=== PATIENT | female | born 1985 | race African-American/Black ===

== ENCOUNTER 2016-11-04 22:05 | Inpatient (IN) | payer OTHER ==
[2016-11-04 23:10] VITALS: BMI 24.8
[2016-11-04] MEDS ORDERED: TUBERCULIN PPD 5 TU/0.1ML SYRINGE (IN PATIENT USE ONLY) ID ONE (23:10)
[2016-11-04 23:25] LABS: BASOPHIL 0.8 % (0-2.0); EOSINOPHIL 0.6 % (0-4.5); MCH 30.3 pg (25.7-33.7); MCHC 34.9 g/dl (32.0-36.0); MEAN CELL VOLUME 86.7 fl (80-96); MEAN PLT VOLUME 9.5 fl (7.5-11.1); NEUTROPHILS 63.4 % (42.8-82.8); PLATELET COUNT 257 K/MM3 (134-434); RDW 13.4 % (11.6-15.6)
--- NOTE | 2016-11-04 23:30 | HP ---
Past Medical History - Primary Care Physician PCP:: Stephen Ray - Admission Chief Complaint: 37.1 weeks, rom History of Present Illness: 31 yo f g 6 [id number] wdc by sono 11/24/16 37.1 weeks c/o ROM since 930 pm, clear, no pain, no fever , no vaginal bleeding History Source: Patient Limitations to Obtaining History: No Limitations - Past Medical History ...: 6 ...Para: 2 ...Term: 1 ...: 1 ...Spon : 0 ...Induced : 3 ...Multiple Gestation: 0 ...LMP: 02/18/16 ... Weeks Gestation by Dates: 37.1 ...EDC by Dates: 11/24/16 ...EDC by Sono: 11/24/16 Heme/Onc: Yes: Sickle Cell Trait - Past Surgical History Hx Myomectomy: No Hx Transabdominal Cerclage: No Additional Surgical History: ovarian cystectomy, 2004. hemorrhoidectomy - Smoking History Smoking history: Former smoker Have you smoked in the past 12 months: No Aproximately how many cigarettes per day: 5 If you are a former smoker, when did you quit?: 10/2014 - Alcohol/Substance Use Hx Alcohol Use: No - Social History History of Recent Travel: No Home Medications - Allergies Allergies/Adverse Reactions: Allergies Allergy/AdvReac Type Severity Reaction Status Date / Time No Known Allergies Allergy Verified 09/29/16 11:56 - Home Medications Home Medications: Ambulatory Orders Vitamins (Sjr) - 1 tab PO DAILY 05/05/15 Review of Systems - Review of Systems Constitutional: reports: No Symptoms Eyes: reports: No Symptoms HENT: reports: No Symptoms Neck: reports: No Symptoms Cardiovascular: reports: No Symptoms Respiratory: reports: No Symptoms Gastrointestinal: reports: No Symptoms Genitourinary: reports: No Symptoms Musculoskeletal: reports: No Symptoms Integumentary: reports: No Symptoms Neurological: reports: No Symptoms Endocrine: reports: No Symptoms Hematology/Lymphatic: reports: No Symptoms Psychiatric: reports: No Symptoms Physical Exam - Maternity Vital Signs: Vital Signs Temperature 98.3 F 11/04/16 22:58 Pulse Rate 63 11/04/16 22:58 Respiratory Rate 20 11/04/16 22:58 Blood Pressure 118/55 11/04/16 22:58 O2 Sat by Pulse Oximetry (%) Constitutional: Yes: Well Nourished, No Distress, Calm Eyes: Yes: WNL, Conjunctiva Clear, EOM Intact HENT: Yes: WNL, Atraumatic, Normocephalic Neck: Yes: WNL, Supple, Trachea Midline Cardiovascular: Yes: WNL, Regular Rate and Rhythm Breast(s): Yes: WNL - Abdominal Exam/OB Fundal Height: 36 Number of Fetuses: Single Presentation: Vertex Contractions: Yes Regularity: Irregular Intensity: Unaware Monitor Mode: External Heart Rate Location: [facility] Category: II Accelerations: Non-Uniform Decelerations: Variable - Vaginal Exam/OB Vaginal Bleediing: No Speculum Exam: No Dilatation (cm): closed Effacement (%): 0 Amniotic Membrane Status: Ruptured Nitrazine Test: Positive Amniotic Fluid: Yes: Clear Presentation: Vertex/Position Station: -3 - Physical Exam Musculoskeletal: Yes: WNL Edema: No Edema: LLE: Trace, RLE: Trace ...Motor Strength: WNL Psychiatric: Yes: WNL Hemorrhage Risk Assessment - Risk Factors Medium Risk Factors: Yes: None Risk Score: 1 Risk Level: Medium Risk Problem List - Problems (1) with 37 or more completed weeks gestation Code(s): [id number] - (2) membrane rupture Code(s): FBJ6843 - (3) Non-reassuring electronic monitoring tracing Code(s): O76 - ABNLT IN HEART RATE AND RHYTHM COMP LABOR AND DELIVERY Assessment/Plan admit heart monitoring, i, lt side, o2 , if decel cont needs c/s rba discussed
[2016-11-04 23:33] LABS: INR 0.96 (0.82-1.09); PROTHROMBIN TIME (PATIENT) 10.5 SEC (9.98-11.88)
[2016-11-04 23:35] LABS: ACTIVATED PTT 27.6 SECONDS (26.9-34.4)
[2016-11-04] MEDS ORDERED: CITRIC ACID/SODIUM CITRATE 30 ML UNIT-DOSE CUP PO ONE (23:44)
[2016-11-04] MEDS ORDERED: ELECTROLYTE-148 SOLN 1,000 ML IV SCH (23:45)
[2016-11-05] MEDS ORDERED: IBUPROFEN 800 MG/8 ML IJ IVPB PRN (00:10)
[2016-11-05] MEDS ORDERED: oxyCODONE HCL 5 MG TABLET PO PRN (00:10)
[2016-11-05] MEDS ORDERED: diphenhydrAMINE HCL 25 MG CAPSULE (FP) PO PRN (00:10)
[2016-11-05] MEDS ORDERED: METHYLERGONOVINE MALEATE 0.2 MG/1 ML AMP IM PRN (00:10)
[2016-11-05] MEDS ORDERED: BENZOCAINE 28 GM HEMORRHOIDAL OINTMENT PR PRN (00:10)
[2016-11-05] MEDS ORDERED: WITCH HAZEL 50% (TUCKS) 40 PAD/JAR PAD TP PRN (00:10)
[2016-11-05] MEDS ORDERED: BENZOCAINE 20% 57 GM BOTTLE TP PRN (00:10)
[2016-11-05 00:11] LABS: CALCIUM 8.9 mg/dL (8.5-10.1)
[2016-11-05 00:12] LABS: COCKROFT - GAULT 220.592; CREATININE 0.4 mg/dL (0.55-1.02)
[2016-11-05] MEDS ORDERED: DEXTROSE 5%-LACTATED RINGERS 1,000 ML IV SCH (00:15)
[2016-11-05] MEDS ORDERED: OXYTOCIN 20 UNITS in 0.9% NS 1,000 ML IV SCH (00:15)
[2016-11-05 00:20] LABS: URINE APPEARANCE CLEAR; URINE BILIRUBIN NEGATIVE (NEGATIVE); URINE BLOOD NEGATIVE (NEGATIVE); URINE COLOR STRAW; URINE GLUCOSE (UA) NEGATIVE (NEGATIVE); URINE KETONE NEGATIVE (NEGATIVE); URINE LEUK ESTERASE NEGATIVE (NEGATIVE); URINE NITRITE NEGATIVE (NEGATIVE); URINE PROTEIN NEGATIVE (NEGATIVE); URINE UROBILINOGEN NEGATIVE E.U./dl (0.2-1.0)
[2016-11-05 00:30] LABS: URINE MARIJUANA THC POSITIVE ng/ml (CUTOFF=50)
[2016-11-05 00:49] LABS: ARTERIAL BLD GAS O2 SATURATION 27.6 % (90-98.9); ARTERIAL BLOOD GAS BASE EXCESS -1.7 meq/l (-2-2); ARTERIAL BLOOD GAS HCO3 24.9 meq/L (22-26)
[2016-11-05 00:52] LABS: ARTERIAL BLOOD GAS PO2 17.5 mmHg (80-100)
[2016-11-05 00:54] LABS: VENOUS BLOOD GAS HCO3 23.2 meq/L (19-25); VENOUS PH 7.36 (7.32-7.42)
[2016-11-05] MEDS ORDERED: ONDANSETRON 4 MG/2 ML VIAL IVPB PRN (01:07)
[2016-11-05] MEDS ORDERED: CEFAZOLIN 1 GM/D5W 50 ML IVPB SCH (02:00)
--- NOTE | 2016-11-05 09:05 | OP ---
DATE OF OPERATION: 11/05/2016 PREOPERATIVE DIAGNOSIS: , 37 weeks, premature rupture of membranes, labor, breech, non-reassuring heart rate. POSTOPERATIVE DIAGNOSIS: , 37 weeks, premature rupture of membranes, labor, breech, non-reassuring heart rate. PROCEDURE: Primary low segment transverse section. SURGEON: Mahendra Oliver MD TRAFFIC REPORTER: Olga Herrera MD ANESTHESIA: Spinal. ANESTHESIOLOGIST: Pamela Chaudhry DO ESTIMATED BLOOD LOSS: 100 mL. OPERATION: The patient was taken to the operating room. Under adequate spinal anesthesia, abdomen and perineum were prepped and draped. Pfannenstiel abdominal skin incision was made over the previous incision. Abdominal wall was cut layer by layer, and the peritoneum was exposed and incised. Upon entering the abdominal cavity, lower uterine segment was identified, and uterovesical fold of peritoneum was established, bladder was pushed down. Then, with the lower blade of the Tushar retractor in the pelvis, a low transverse uterine incision was made. Incision extended laterally. Amniotic sac was entered. Minimal fluid was seen. Baby was in yoanna breech, right sacral anterior position. Delivered via breech without any difficulty. Placenta was delivered manually. Uterine cavity was cleaned of all remaining tissue. Then, uterine incision was closed in 2 layers, 1st layer with 0 Biosyn continuous suture, the 2nd layer with 0 Biosyn imbricating the 1st layer. Bladder flap was closed with 0 Biosyn continuous suture. Both tubes and ovaries were checked, were normal. No active bleeding was seen. All the lap pad, sponge, and instrument counts were correct. Then, the peritoneum was closed with 0 Biosyn continuous suture, muscles were brought together with interrupted suture of 0 Biosyn, fascia was closed with 0 Biosyn continuous suture, subcutaneous fat with interrupted suture of 0 Biosyn, and the skin was closed with 3-0 Vicryl subcuticular continuous suture. The patient tolerated the procedure well, left the OR in good condition. MAHENDRA OLIVER M.D. [id number]
[2016-11-05] MEDS: CEFAZOLIN 1 GM/D5W 50 ML IVPB SCH ×3 (10:00→17:14)
[2016-11-05] MEDS: PRENATAL VITAMINS W/ FOLIC ACID TABLET (FP) PO SCH (10:11)
[2016-11-05] MEDS: ENOXAPARIN NA (PORCINE) 40 MG/0.4 ML DISP.SYRIN SQ SCH (10:18)
[2016-11-05] MEDS: SIMETHICONE 80 MG TAB.CHEW (FP) PO PRN (21:57)
[2016-11-05] MEDS: ACETAMINOPHEN 325 MG TABLET (FP) PO PRN (21:59)
[2016-11-05] MEDS: IBUPROFEN 600 MG TABLET (FP) PO PRN (22:01)
[2016-11-06] MEDS ORDERED: BISACODYL 10 MG SUPP.RECT RC PRN (00:10)
[2016-11-06] MEDS: IBUPROFEN 600 MG TABLET (FP) PO PRN ×2 (04:45→21:30)
[2016-11-06] MEDS: ACETAMINOPHEN 325 MG TABLET (FP) PO PRN (04:47)
[2016-11-06] MEDS: oxyCODONE HCL 5 MG TABLET PO PRN ×3 (08:29→18:08)
[2016-11-06 08:52] LABS: BASOPHIL 0.8 % (0-2.0); EOSINOPHIL 1.1 % (0-4.5); MCH 29.8 pg (25.7-33.7); MCHC 34.7 g/dl (32.0-36.0); MEAN CELL VOLUME 85.9 fl (80-96); MEAN PLT VOLUME 8.5 fl (7.5-11.1); NEUTROPHILS 66.7 % (42.8-82.8); PLATELET COUNT 223 K/MM3 (134-434); RDW 13.1 % (11.6-15.6)
[2016-11-06] MEDS: PRENATAL VITAMINS W/ FOLIC ACID TABLET (FP) PO SCH (11:00)
[2016-11-06] MEDS: ENOXAPARIN NA (PORCINE) 40 MG/0.4 ML DISP.SYRIN SQ SCH (11:01)
--- NOTE | 2016-11-06 11:35 | PN ---
Progress Note, Physician Chief Complaint: Pt. ambulating and voiding, no BARRETO, pain controlled. - Current Medication List Current Medications: Active Medications Acetaminophen (Tylenol -) 650 mg PO Q6H PRN PRN Reason: FEVER OR PAIN Last Admin: 11/06/16 04:47 Dose: 650 mg Benzocaine (Americaine Ointment -) 1 applic [place] PRN PRN PRN Reason: PAIN Benzocaine (Americaine 20% [place] -) 1 spray TP PRN PRN PRN Reason: PAIN Bisacodyl (Dulcolax Suppository -) 10 mg RC PRN PRN PRN Reason: CONSTIPATION Diphenhydramine HCl (Benadryl -) 25 mg PO Q8H PRN PRN Reason: FOR ITCHING Diphenhydramine HCl (Benadryl Injection -) 25 mg IVPUSH Q4H PRN PRN Reason: Pruritis Enoxaparin Sodium (Lovenox -) 40 mg SQ DAILY [facility] Last Admin: 11/06/16 11:01 Dose: Not Given Ibuprofen (Motrin -) 600 mg PO Q4H PRN PRN Reason: PAIN Last Admin: 11/06/16 04:45 Dose: 600 mg Methylergonovine Maleate (Methergine Injection -) 0.2 mg IM Q4H PRN PRN Reason: EXCESSIVE BLEEDING Oxycodone HCl (Roxicodone -) 5 mg PO Q4H PRN PRN Reason: PAIN LEVEL 1-5 Last Admin: 11/06/16 08:29 Dose: 5 mg Oxycodone HCl (Roxicodone -) 10 mg PO Q4H PRN PRN Reason: PAIN LEVEL 6-10 Multivit/Folic Acid/Iron ( Vitamins (Sjr) -) 1 tab PO DAILY [facility] Last Admin: 11/06/16 11:00 Dose: 1 tab Senna/Docusate Sodium (Pericolace -) 2 tablet PO HS PRN PRN Reason: CONSTIPATION Simethicone (Mylicon -) 80 mg PO Q4H PRN PRN Reason: GAS Last Admin: 11/05/16 21:57 Dose: 80 mg Witch Tanisha/Glycerin (Tucks Pads -) 1 pad TP PRN PRN PRN Reason: PAIN - Objective Vital Signs: Vital Signs Temperature 98.3 F 11/05/16 22:00 Pulse Rate 62 11/05/16 22:00 Respiratory Rate 18 11/06/16 01:00 Blood Pressure 120/66 11/05/16 22:00 O2 Sat by Pulse Oximetry (%) 100 11/05/16 02:00 Constitutional: Yes: Well Nourished, No Distress, Calm Musculoskeletal: Yes: WNL Neurological: Yes: WNL, Alert, Oriented ...Motor Strength: WNL Labs: CBC, BMP 11/06/16 07:45 11/04/16 23:00 INR, PTT INR 0.96 (0.82-1.09) 11/04/16 23:00 Assessment/Plan POD#1 s/p primary under spinal with duramorph. Doing well. D/C from anesthesia care.
[2016-11-06] MEDS: SIMETHICONE 80 MG TAB.CHEW (FP) PO PRN (21:29)
--- NOTE | 2016-11-06 23:25 | PN ---
Progress Note (short form) - Note Progress Note: pod 1 doing well, no c/o voids ok CBC, BMP 11/06/16 07:45 11/04/16 23:00 Last Vital Signs Temp Pulse Resp BP Pulse Ox 97.8 F 60 18 116/70 100 11/06/16 20:58 11/06/16 20:58 11/06/16 20:58 11/06/16 20:58 11/05/16 02:00 abdomen soft, non tender , no distension., no cva incision dry, clean no calf tenderness plan ambulate , advance diet Problem List - Problems (1) with 37 or more completed weeks gestation Code(s): [id number] - (2) membrane rupture Code(s): LLV4998 - (3) Non-reassuring electronic monitoring tracing Code(s): O76 - ABNLT IN HEART RATE AND RHYTHM COMP LABOR AND DELIVERY
[2016-11-07] MEDS: oxyCODONE HCL 5 MG TABLET PO PRN ×3 (00:55→17:49)
[2016-11-07] MEDS: SIMETHICONE 80 MG TAB.CHEW (FP) PO PRN (06:20)
[2016-11-07] MEDS: IBUPROFEN 600 MG TABLET (FP) PO PRN ×2 (06:20→21:11)
[2016-11-07] MEDS: ACETAMINOPHEN 325 MG TABLET (FP) PO PRN ×2 (06:21→21:12)
[2016-11-07] MEDS: PRENATAL VITAMINS W/ FOLIC ACID TABLET (FP) PO SCH (09:26)
[2016-11-07] MEDS: ENOXAPARIN NA (PORCINE) 40 MG/0.4 ML DISP.SYRIN SQ SCH (09:26)
--- NOTE | 2016-11-07 10:57 | DS ---
Physical Exam-GANG BOSS Vital Signs: Vital Signs Temperature 97.7 F 11/07/16 08:57 Pulse Rate 59 L 11/07/16 08:57 Respiratory Rate 20 11/07/16 08:57 Blood Pressure 114/76 11/07/16 08:57 O2 Sat by Pulse Oximetry (%) 100 11/05/16 02:00 Labs: CBC, BMP 11/06/16 07:45 11/04/16 23:00 Delivery - Delivery Type of Anesthesia: Spinal Episiotomy/Laceration: None EBL (cc): 500 Delivery, Single - Stages of Labor Date of Delivery: 11/05/16 Time of Delivery: 00:22 Time Placenta Delivered: 00:25 - Condition of Farmer And Grazier/Sewing Machine Operator Present: Yes Name: Torsten Arellano Gender: Male Weight: 6 lb 6 oz Total Hours ROM (Hrs/Mins): 3H - 1 Minute Total Score: 9 5 Minutes Total Score: 9 - [place] Feeding Plan Initial Plan: Elected not to breastfeed exclusively throughout hospitalization Discharge Summary Reason For Visit: LABOR ADMIT Current Active Problems membrane rupture (Acute) Non-reassuring electronic monitoring tracing (Acute) with 37 or more completed weeks gestation (Acute) - Home Medications Comprehensive Discharge Medication List: Ambulatory Orders Vitamins (Sjr) - 1 tab PO DAILY 05/05/15
--- NOTE | 2016-11-07 17:12 | PN ---
Progress Note (short form) - Note Progress Note: pod 2 doing well, ambulating , tolorating diet CBC, BMP 11/06/16 07:45 11/04/16 23:00 Last Vital Signs Temp Pulse Resp BP Pulse Ox 97.7 F 59 L 20 114/76 100 11/07/16 08:57 11/07/16 08:57 11/07/16 08:57 11/07/16 08:57 11/05/16 02:00 abdomen soft, no distension, no cva incision dry, clean no calf tenderness plan ambulate, cbc in am Problem List - Problems (1) with 37 or more completed weeks gestation Code(s): [id number] - (2) membrane rupture Code(s): SHE0754 - (3) Non-reassuring electronic monitoring tracing Code(s): O76 - ABNLT IN HEART RATE AND RHYTHM COMP LABOR AND DELIVERY
[2016-11-07] MEDS ORDERED: oxyCODONE HCL 5 MG TABLET PO PRN (21:59)
[2016-11-07] MEDS ORDERED: SENNOSIDES/DOCUSATE COMBO (SENNA PLUS) TABLET (UD) PO PRN (22:00)
[2016-11-08] MEDS: IBUPROFEN 600 MG TABLET (FP) PO PRN (02:57)
[2016-11-08] MEDS: ACETAMINOPHEN 325 MG TABLET (FP) PO PRN (02:58)
[2016-11-08] MEDS: SIMETHICONE 80 MG TAB.CHEW (FP) PO PRN (03:35)
[2016-11-08 08:03] VITALS: BP 118/73; PULSE 57; TEMP 98.3
[2016-11-08 08:15] LABS: BASOPHIL 0.4 % (0-2.0); MCH 29.6 pg (25.7-33.7); MCHC 33.8 g/dl (32.0-36.0); MEAN CELL VOLUME 87.4 fl (80-96); MEAN PLT VOLUME 8.6 fl (7.5-11.1); NEUTROPHILS 60.6 % (42.8-82.8); PLATELET COUNT 225 K/MM3 (134-434); RDW 13.1 % (11.6-15.6); WHITE BLOOD COUNT 8.1 K/mm3 (4.0-10.0)
--- NOTE | 2016-11-08 08:51 | DS ---
Physical Exam-PHOTOGRAPHIC LABORATORY TECHNICIAN Vital Signs: Vital Signs Temperature 98.3 F 11/08/16 07:45 Pulse Rate 57 L 11/08/16 07:45 Respiratory Rate 20 11/08/16 07:45 Blood Pressure 118/73 11/08/16 07:45 O2 Sat by Pulse Oximetry (%) 100 11/05/16 02:00 Constitutional: Yes: Well Nourished Eyes: Yes: WNL, Conjunctiva Clear, EOM Intact HENT: Yes: WNL, Atraumatic, Normocephalic Neck: Yes: WNL, Supple, Trachea Midline Cardiovascular: Yes: WNL, Regular Rate and Rhythm Respiratory: Yes: WNL, Regular, CTA Bilaterally Gastrointestinal: Yes: WNL ...Rectal Exam: Yes: WNL Renal/: Yes: WNL ....Post : Yes: Uterus firm, Uterus non-tender, Slight lochia rubra Breast(s): Yes: WNL Musculoskeletal: Yes: WNL Extremities: Yes: WNL Edema: No Integumentary: Yes: WNL Wound/Incision: Yes: Clean/Dry, Well Approximated, Sutures Intact Neurological: Yes: WNL, Alert, Oriented ...Motor Strength: WNL Psychiatric: Yes: WNL, Alert, Oriented Labs: CBC, BMP 11/08/16 06:00 11/04/16 23:00 Delivery - Delivery Section: Primary, Low Flap Transverse (breech ,no complication) Type of Anesthesia: Spinal Episiotomy/Laceration: None EBL (cc): 500 Delivery, Single - Stages of Labor Date of Delivery: 11/05/16 Time of Delivery: 00:22 Time Placenta Delivered: 00:25 Placenta: Yes: Expressed - Condition of Plant Electrical Engineer/Fish Straightener Present: Yes Name: Torsten Arellano Infant Gender: Male Weight: 6 lb 6 oz Total Hours ROM (Hrs/Mins): 3H - 1 Minute Total Score: 9 5 Minutes Total Score: 9 - [place] Feeding Plan Initial Plan: Elected not to breastfeed exclusively throughout hospitalization Discharge Summary Reason For Visit: LABOR ADMIT Current Active Problems membrane rupture (Acute) Non-reassuring electronic monitoring tracing (Acute) with 37 or more completed weeks gestation (Acute) Procedures: Principal: primary LST c/s Condition: Stable - Instructions Referrals: Stephen Ray MD [Staff Physician] - - Home Medications Comprehensive Discharge Medication List: Ambulatory Orders Vitamins (Sjr) - 1 tab PO DAILY 05/05/15
[2016-11-08] MEDS: PRENATAL VITAMINS W/ FOLIC ACID TABLET (FP) PO SCH (09:36)
[2016-11-08] MEDS: ENOXAPARIN NA (PORCINE) 40 MG/0.4 ML DISP.SYRIN SQ SCH (09:41)
--- NOTE | 2016-11-10 14:25 | PATH ---
Surgical Pathology Report Patient Name: SARAH SCHMITT Med. Rec. #: [id number] /Age/Gender: 1985 (Age: 31) / F Account: [id number] Location: [facility] OBS/FORM SETTER Taken: 11/05/2016 Received: 11/05/2016 Reported: 11/10/2016 Physicians: Stephen Ray M.D. Specimen(s) Received PLACENTA Clinical History , IUP 37.1 weeks, PROM, non-reassuring FHR, breech Primary c/section Final Diagnosis PLACENTA, DELIVERY: FOCALLY DISRUPTED, SMALL (<400GM), THIRD TRIMESTER PLACENTA WITH MILD TO MODERATE PREVILLOUS, PERIVILLOUS, AND PRECHORIONIC FIBRIN DEPOSITION, FOCAL CALCIFICATIONS, THREE VESSEL UMBILICAL CORD, AND PLACENTAL MEMBRANES WITH FOCAL AMNION HYPERPLASIA. Electronically Signed Milan Childers M.D. Gross Description The specimen is received fresh, labeled "placenta" and is a 348 gram, 19.0 x 16.5 x 1.6 cm placenta with attached membranes and umbilical cord. The attached membranes are mishra, translucent with focal opacities and insert marginally. The umbilical cord measures 13 cm in length and averages 1.2 cm in diameter. The cord inserts eccentrically, 4 cm to the nearest margin. No true knots or strictures are identified. Cut surface of the umbilical cord reveals 3 vessels. The surface is banda-blue with fibrin deposition and appropriate caliber vessels. The maternal surface is red-brown with focal defects. Sectioning reveals red-brown, spongy parenchyma. No focal lesions are identified. Front Desk Manager sections are submitted in three cassettes as follows: 1- membrane rolls and umbilical cord; 2-3- full thickness sections of placenta. /11/09/2016 [facility]11/09/2016
== END 2016-11-08 12:00 | disposition home or self-care (01) | DRG 540 ==
LOC: JLDR 22:05 → J3W 11-05 02:30
PROVIDERS: ADMIT Obstetrics & Gynecology; ATTEND Obstetrics & Gynecology
PROC: 10D00Z1 Extraction of Products of Conception, Low, Open Approach (ICD-10-PCS; principal; 2016-11-05)
DX: O76 Abnormality in fetal heart rate and rhythm complicating labor and delivery (principal); O42.92 Full-term premature rupture of membranes, unspecified as to length of time between rupture and onset of labor; Z3A.37 37 weeks gestation of pregnancy; Z37.0 Single live birth
CPT/HCPCS: 36415; 36600; 80048; 80307; 81003; 82803; 85025; 85610; 85730; 86593; 86850; 86900; 86901; 88307-TC

== ENCOUNTER 2018-10-09 23:05 | Inpatient (IN) | payer OTHER ==
[2018-10-09] MEDS ORDERED: DEXTROSE 5%-LACTATED RINGERS 500 ML IV ONE (23:30)
[2018-10-10] MEDS ORDERED: DEXTROSE 5%-LACTATED RINGERS 500 ML IV ONE (00:30)
[2018-10-10 02:24] LABS: BASO % 0.3 % (0-2.0); EOS % 1.4 % (0-4.5); HEMATOCRIT 30.8 % (32.4-45.2); LYMPH % 32.5 % (8-40); MCH 31.3 pg (25.7-33.7); MCHC 35.7 g/dl (32.0-36.0); MEAN CELL VOLUME 87.8 fl (80-96); NEUT % 60.8 % (42.8-82.8); PLATELET COUNT 223 K/MM3 (134-434); RDW 13.7 % (11.6-15.6); WHITE BLOOD COUNT 12.4 K/mm3 (4.0-10.0)
[2018-10-10] MEDS ORDERED: CITRIC ACID/SODIUM CITRATE 30 ML UNIT-DOSE CUP PO ONE (02:30)
[2018-10-10] MEDS ORDERED: ELECTROLYTE-148 SOLN 500 ML IV ONE (02:30)
[2018-10-10 02:35] LABS: INR 0.93 (0.83-1.09)
[2018-10-10 02:38] LABS: ACTIVATED PTT 28.6 SECONDS (25.2-36.5)
[2018-10-10 02:47] LABS: ANION GAP 6 MMOL/L (8-16); BLOOD UREA NITROGEN 9 mg/dL (7-18); CALCIUM 8.3 mg/dL (8.5-10.1); CHLORIDE 107 mmol/L (98-107); CO2 25 mmol/L (21-32); CREATININE 0.5 mg/dL (0.55-1.3); GLUCOSE,RANDOM 99 mg/dL (74-106); POTASSIUM 3.5 mmol/L (3.5-5.1); SODIUM 138 mmol/L (136-145)
[2018-10-10] MEDS ORDERED: ELECTROLYTE-148 SOLN 1,000 ML IV SCH ×2 (03:00→04:30)
[2018-10-10 03:13] VITALS: BMI 23.5
[2018-10-10] MEDS ORDERED: morphine SULFATE/Preservative Free 0.5 MG/ML (1cc Syringe) EP ONE (04:16)
[2018-10-10] MEDS ORDERED: ONDANSETRON 4 MG/2 ML VIAL IVPUSH PRN (04:16)
[2018-10-10] MEDS ORDERED: ceFAZolin SODIUM 1 GM VIAL ONE (04:28)
--- NOTE | 2018-10-10 04:28 | HP ---
Past Medical History - Admission History of Present Illness: 33 yo @ 37 0/7 wks by first trimester ultrasound, EDC 10/31/2018 complicated by: 1. Prior CD (breech in labor) 10/2016 - desires repeat Declines tubal ligation 2. Patient with sickle cell trait Partner declines Hg Electrophoresis 3. delivery with second baby @ 34 wks Refused 17 [place] Progesterone 4. AMA - reassuring cell free DNA and AFP Patient reports with chief complaint of spontaneous leakage of fluid, contractions. She reports movement, denies vaginal bleeding. History Source: Patient Limitations to Obtaining History: No Limitations - Past Medical History Cardiovascular: No: HTN Pulmonary: No: Asthma Gastrointestinal: No: GERD ...: 6 ...Para: 3 ...Term: 2 ...: 1 ...Spon : 0 ...Induced : 2 ...Multiple Gestation: 0 ... Weeks Gestation by Dates: 37.0 ...EDC by Dates: 10/31/18 Heme/Onc: Yes: Sickle Cell Trait - Past Surgical History Hx Myomectomy: No Hx Transabdominal Cerclage: No Additional Surgical History: Hemorrhoidectomy. Ovarian cystectomy via laparotomy - Smoking History Smoking history: Never smoked Have you smoked in the past 12 months: No Aproximately how many cigarettes per day: 5 If you are a former smoker, when did you quit?: 10/2014 - Alcohol/Substance Use Hx Alcohol Use: No History of Substance Use: reports: None - Social History History of Recent Travel: No Home Medications - Allergies Allergies/Adverse Reactions: Allergies Allergy/AdvReac Type Severity Reaction Status Date / Time No Known Allergies Allergy Verified 10/10/18 00:04 - Home Medications Home Medications: Ambulatory Orders Vitamins (Sjr) - 1 tab PO DAILY 05/05/15 Family Disease History - Family Disease History Family History: Denies Review of Systems - Review of Systems Constitutional: reports: No Symptoms Neck: reports: No Symptoms Cardiovascular: reports: No Symptoms Gastrointestinal: reports: No Symptoms Genitourinary: reports: No Symptoms Musculoskeletal: reports: No Symptoms Endocrine: reports: No Symptoms Hematology/Lymphatic: reports: No Symptoms Physical Exam - Maternity Vital Signs: Vital Signs Temperature 97 F L 10/10/18 02:30 Pulse Rate 68 10/10/18 02:30 Respiratory Rate 20 10/10/18 02:30 Blood Pressure 111/69 10/10/18 02:30 O2 Sat by Pulse Oximetry (%) Constitutional: Yes: Well Nourished, No Distress, Calm Cardiovascular: Yes: Regular Rate and Rhythm Lungs: Clear to auscultation - Abdominal Exam/OB Number of Fetuses: Single Presentation: Vertex Contractions: Yes Regularity: Regular Intensity: Mild/Mod Monitor Mode: External Category: I - Vaginal Exam/OB Vaginal Bleediing: No Dilatation (cm): 0 Amniotic Membrane Status: Ruptured - Physical Exam Psychiatric: Yes: Alert, Oriented - Labs Lab Results: CBC, BMP 10/10/18 02:15 10/10/18 02:15 labs: O positive, antibody negative; RPR NR; HBs Ag neg; HCV neg; Varicella Immune; Rubella Immune; Hb Marlene SC trait; GCT WNL; GBS neg Hemorrhage Risk Assessment - Risk Factors Medium Risk Factors: Yes: Prior , uterine surgery,or multiple laparotomies High Risk Factors: Yes: None Risk Score: 1 Risk Level: Medium Risk Assessment/Plan 33 yo prior CD, SROM, in labor at 37 wks desiring repeat CD 1. Admit to L&D 2. Consents reviewed and signed. Reviewed risks including but not limited to to infection, bleeding requiring transfusion and damage to surrounding organs such as the bowel or bladder. Discussed risk of injury to . Discussed risk of wound infection and separation. Discussed need for planning of future children and possibility of abnormal placentation. 3. Ancef building performance consultant to OR 4. SCDs for DVT prophylaxis 5. Will proceed to OR
[2018-10-10] MEDS ORDERED: OXYTOCIN 20 UNITS in 0.9% NS 40 UNIT/2,000 ML INFUS.BAG IV ONE (05:03)
[2018-10-10] MEDS ORDERED: MIDAZOLAM HCL 2 MG/2 ML SINGLE DOSE VIAL ONE (05:07)
[2018-10-10] MEDS ORDERED: IBUPROFEN 800 MG/8 ML IJ IVPB PRN (06:21)
[2018-10-10] MEDS ORDERED: METHYLERGONOVINE MALEATE 0.2 MG/1 ML AMP IM PRN (06:21)
[2018-10-10] MEDS ORDERED: SENNOSIDES/DOCUSATE COMBO (SENNA PLUS) TABLET (UD) PO PRN (06:21)
[2018-10-10] MEDS ORDERED: oxyCODONE HCL 5 MG TABLET PO PRN (06:21)
--- NOTE | 2018-10-10 06:21 | PN ---
"Delivery - Delivery Type of Anesthesia: Spinal Episiotomy/Laceration: None EBL (cc): 600 Delivery, Single - Stages of Labor Date 1st Stage Initiatied: 10/09/18 Time 1st Stage Initiated: 21:30 Date of Delivery: 10/10/18 Time of Delivery: 05:06 Time Placenta Delivered: 05:07 Placenta: Yes: Manual Removal - Condition of Financial Services Sales Representative/Sample Carrier Present: Yes Name: Malorie Chavez Gender: Male Weight: 6 lb 9 oz Position: OP Total Hours ROM (Hrs/Mins): 2hrs 37min - 1 Minute Total Score: 9 5 Minutes Total Score: 9 - Feeding Plan Initial Plan: Elected not to breastfeed exclusively throughout hospitalization Remarks - Remarks Remarks: Surgeon: MD Rogelio | Assist: ALDO Fontaine | Anesthesia: MD Levar EBL: 600 | UOP: 400 | IVF: 1300 Findings: Male infant, OP position, 9,9, wt 6-9, nuchal cord noted and reduced; normal right ovary, left ovarian remnant noted Dictation: [id number]"
[2018-10-10] MEDS: OXYTOCIN 20 UNITS in 0.9% NS 20 UNIT/1,000 ML INFUS.BAG IV SCH ×2 (07:30→17:30)
--- NOTE | 2018-10-10 09:12 | OP ---
DATE OF OPERATION: 10/10/2018 ATTENDING PHYSICIAN RESPONSIBLE FOR SIGNING REPORT: Rocio Mercado MD PREOPERATIVE DIAGNOSIS: Intrauterine 37 weeks and spontaneous rupture of membranes and in labor. POSTOPERATIVE DIAGNOSIS: Intrauterine 37 weeks and spontaneous rupture of membranes and in labor. SURGEON: Rocio Mercado MD CHORE TENDER: ALDO Kumari ANESTHESIOLOGIST: Vern Cristobal MD ESTIMATED BLOOD LOSS: 600. URINE OUTPUT: 400. INTRAVENOUS FLUIDS GIVEN: 1300. INDICATIONS: Patient is a 33-year-old 7, para 2-1-3-3-, with a history of prior , desiring repeat. She presented complaining of leakage of fluids and contractions. She was counseled regarding risks, benefits, alternatives, and complications of procedure including infection, bleeding, damage to surrounding organs, and she expressed understanding. DESCRIPTION OF PROCEDURE: She was brought to the operating room. When anesthesia was found to be adequate, patient was prepped and draped in a normal sterile fashion, placed in dorsal supine position with a leftward tilt. The previous scar was noted to be hypertrophic in appearance (keloid). The knife was used to excse the scar and the skin incision was carried down to the underlying rectus fascia using the Bovie electrocautery. This fascia was nicked in the midline, extended laterally using the Horta scissors. Inferior portion of the fascial incision was tented up using Hollis clamps, resected off the underlying rectus muscles using the Horta scissors. Attention was brought to the superior portion of the incision, where, in a similar fashion, the fascia was dissected down, tented up using Hollis clamps, and dissected off the underlying rectus muscles using the Horta scissors. The rectus muscles were in the midline using the knife, and the peritoneum was entered sharply using Horta scissors. Evaluation of the intrauterine cavity revealed multiple thick adhesions from the omentum to the anterior abdominal wall, some of which were removed. Good hemostasis was noted. The peritoneal incision was extended superiorly and inferiorly, and bladder was noted to be adherent to the anterior face of the uterus. This was taken down using the Metzenbaum scissors. Hysterotomy was performed. Hysterotomy incision was extended laterally superolaterally using the bandaged scissors. Infants head was found to be in OP position. Infants head was brought to the hysterotomy site, and the head was delivered followed, nuchal cord noted and reduced, and shoulders and body were delivered without difficulty. Cord was clamped and cut. Cord blood was collected and sent. was handed to waiting NICU staff present for delivery. The placenta was manually extracted. The uterus was cleared of all clot and debris. The hysterotomy was closed using 0 Biosyn in a running fashion , 2nd layer as an imbricating layer. Bilateral adnexa were identified. The patient previously had a left ovarian cystectomy, a left ovarian remnant was noted. Right ovary appeared normal. The gutters were cleared of all clot and debris. The peritoneum was closed using 2-0 Biosyn in a running fashion. The fascia was closed using 0 Vicryl in a running fashion. The subcutaneous fat was closed using 0 Vicryl in a running fashion and 2-0 Vicryl in a running fashion. The skin was reapproximated using 3-0 Vicryl. The patient tolerated the procedure well. Estimated blood loss was 600 mL. Patient was brought to the recovery room in stable condition. Joyce [id number] MTDD
[2018-10-11] MEDS: SIMETHICONE 80 MG TAB.CHEW (FP) PO PRN ×3 (05:53→22:50)
[2018-10-11] MEDS: ACETAMINOPHEN 325 MG TABLET (FP) PO PRN (05:54)
[2018-10-11] MEDS: IBUPROFEN 600 MG TABLET (FP) PO PRN ×3 (05:54→22:51)
[2018-10-11] MEDS: oxyCODONE HCL 5 MG TABLET PO PRN ×3 (05:55→22:50)
[2018-10-11] MEDS ORDERED: BISACODYL 10 MG SUPP.RECT RC PRN (06:21)
[2018-10-11 07:16] LABS: BASO % 0.2 % (0-2.0); EOS % 1.4 % (0-4.5); HEMATOCRIT 29.8 % (32.4-45.2); HEMOGLOBIN 10.5 GM/dL (10.7-15.3); LYMPH % 13.8 % (8-40); MCH 30.9 pg (25.7-33.7); MCHC 35.2 g/dl (32.0-36.0); MEAN CELL VOLUME 87.7 fl (80-96); MEAN PLT VOLUME 9.2 fl (7.5-11.1); MONO % 5.2 % (3.8-10.2); NEUT % 79.4 % (42.8-82.8); PLATELET COUNT 205 K/MM3 (134-434); RDW 13.7 % (11.6-15.6); WHITE BLOOD COUNT 15.5 K/mm3 (4.0-10.0)
--- NOTE | 2018-10-11 07:53 | PN ---
Post Progress Note - Subjective Subjective: Patient without acute complaints. Reports tolerating oral intake without nausea or vomiting. Ambulating without dizziness. Denies fevers or chills. Pain well controlled with oral pain medication. Post Day: 1 Type of Delivery: Repeat C/S Vital Signs: Vital Signs Temperature 97.6 F 10/11/18 02:00 Pulse Rate 64 10/11/18 02:00 Respiratory Rate 18 10/11/18 05:00 Blood Pressure 110/70 10/11/18 02:00 O2 Sat by Pulse Oximetry (%) 100 10/10/18 07:25 Breast Exam: Yes: Soft Uterus: Yes: Fundus Firm, Fundus below umbilicus, Non-tender Incision: Yes: Dressing dry and intact Abdomen/GI: Yes: Abdomen soft, Passing flatus, Tolerating PO Lochia: Yes: Rubra Lochia, amount: Small Extremities: Yes: Calves non-tender Perineum: Yes: Intact Activity: Ambulating - Labs Labs: CBC WBC 15.5 K/mm3 (4.0-10.0) H 10/11/18 06:08 RBC 3.40 M/mm3 (3.60-5.2) L 10/11/18 06:08 Hgb 10.5 GM/dL (10.7-15.3) L 10/11/18 06:08 Hct 29.8 % (32.4-45.2) L 10/11/18 06:08 MCV 87.7 fl (80-96) 10/11/18 06:08 MCH 30.9 pg (25.7-33.7) 10/11/18 06:08 MCHC 35.2 g/dl (32.0-36.0) 10/11/18 06:08 RDW 13.7 % (11.6-15.6) 10/11/18 06:08 Plt Count 205 K/MM3 (134-434) 10/11/18 06:08 MPV 9.2 fl (7.5-11.1) 10/11/18 06:08 Absolute Neuts (auto) 12.3 K/mm3 (1.5-8.0) H 10/11/18 06:08 Neutrophils % 79.4 % (42.8-82.8) D 10/11/18 06:08 Lymphocytes % 13.8 % (8-40) D 10/11/18 06:08 Monocytes % 5.2 % (3.8-10.2) 10/11/18 06:08 Eosinophils % 1.4 % (0-4.5) 10/11/18 06:08 Basophils % 0.2 % (0-2.0) 10/11/18 06:08 Nucleated RBC % 0 % (0-0) 10/11/18 06:08 Assessment/Plan POD#1 s/p repeat LTC/S doing well, stable, afebrile. Asymptomatic for anemia. Post op care reviewed. Continue routine care. Ambulation encouraged Advance diet as tolerated.
--- NOTE | 2018-10-11 08:26 | PN ---
Progress Note, Physician Chief Complaint: s/p c section post op day one under spinal anesthesia History of Present Illness: duramorph for post op pain control - Current Medication List Current Medications: Active Medications Acetaminophen (Tylenol -) 650 mg PO Q4H PRN PRN Reason: FEVER Last Admin: 10/11/18 05:54 Dose: 650 mg Bisacodyl (Dulcolax Suppository -) 10 mg RC PRN PRN PRN Reason: CONSTIPATION Ibuprofen (Motrin -) 600 mg PO Q4H PRN PRN Reason: PAIN LEVEL 1 - 3 Last Admin: 10/11/18 05:54 Dose: 600 mg Methylergonovine Maleate (Methergine Injection -) 0.2 mg IM Q4H PRN PRN Reason: Excessive Bleeding (L&D) Oxycodone HCl (Roxicodone -) 5 mg PO Q4H PRN PRN Reason: PAIN LEVEL 4 - 6 Last Admin: 10/11/18 05:55 Dose: 5 mg Oxycodone HCl (Roxicodone -) 10 mg PO Q4H PRN PRN Reason: PAIN LEVEL 7 - 10 Senna/Docusate Sodium (Pericolace -) 2 tablet PO HS PRN PRN Reason: CONSTIPATION Simethicone (Mylicon -) 80 mg PO Q4H PRN PRN Reason: GAS Last Admin: 10/11/18 05:53 Dose: 80 mg - Objective Vital Signs: Vital Signs Temperature 97.6 F 10/11/18 02:00 Pulse Rate 64 10/11/18 02:00 Respiratory Rate 18 10/11/18 05:00 Blood Pressure 110/70 10/11/18 02:00 O2 Sat by Pulse Oximetry (%) 100 10/10/18 07:25 Constitutional: Yes: Well Nourished Cardiovascular: Yes: WNL Respiratory: Yes: WNL Gastrointestinal: Yes: WNL Labs: CBC, BMP 10/11/18 06:08 10/10/18 02:15 INR, PTT INR 0.93 (0.83-1.09) 10/10/18 02:15 Assessment/Plan No adverse effects from anesthetic. dept of anesthesia will sign off care at this time
--- NOTE | 2018-10-12 00:23 | PN ---
Post Progress Note - Subjective Subjective: Patient without acute complaints. Reports tolerating oral intake without nausea or vomiting. Ambulating without dizziness. Denies fevers or chills. Pain well controlled with oral pain medication. without difficulty. Passing flatus. Post Day: 2 Type of Delivery: Repeat C/S Vital Signs: Vital Signs Temperature 98.4 F 10/11/18 09:05 Pulse Rate 60 10/11/18 09:05 Respiratory Rate 20 10/11/18 09:05 Blood Pressure 114/59 L 10/11/18 09:05 O2 Sat by Pulse Oximetry (%) 100 10/10/18 07:25 Breast Exam: Yes: Soft Uterus: Yes: Fundus Firm, Fundus below umbilicus Incision: Yes: Sutures intact. No: Redness, Oozing Abdomen/GI: Yes: Abdomen soft, Passing flatus, Tolerating PO. No: Abdominal Distention, Tender Lochia: Yes: Serosa Lochia, amount: Small Extremities: Yes: Calves non-tender Activity: Ambulating - Labs Labs: CBC WBC 15.5 K/mm3 (4.0-10.0) H 10/11/18 06:08 RBC 3.40 M/mm3 (3.60-5.2) L 10/11/18 06:08 Hgb 10.5 GM/dL (10.7-15.3) L 10/11/18 06:08 Hct 29.8 % (32.4-45.2) L 10/11/18 06:08 MCV 87.7 fl (80-96) 10/11/18 06:08 MCH 30.9 pg (25.7-33.7) 10/11/18 06:08 MCHC 35.2 g/dl (32.0-36.0) 10/11/18 06:08 RDW 13.7 % (11.6-15.6) 10/11/18 06:08 Plt Count 205 K/MM3 (134-434) 10/11/18 06:08 MPV 9.2 fl (7.5-11.1) 10/11/18 06:08 Absolute Neuts (auto) 12.3 K/mm3 (1.5-8.0) H 10/11/18 06:08 Neutrophils % 79.4 % (42.8-82.8) D 10/11/18 06:08 Lymphocytes % 13.8 % (8-40) D 10/11/18 06:08 Monocytes % 5.2 % (3.8-10.2) 10/11/18 06:08 Eosinophils % 1.4 % (0-4.5) 10/11/18 06:08 Basophils % 0.2 % (0-2.0) 10/11/18 06:08 Nucleated RBC % 0 % (0-0) 10/11/18 06:08 Assessment/Plan 33 yo POD # 2 s/p repeat CD, afebrile, vital signs stable, doing well 1. Continue routine postoperative care. 2. Encourage ambulation and incentive spirometer use 3. Continue oral pain medication 4. Patient desires discharge home today
[2018-10-12] MEDS: ACETAMINOPHEN 325 MG TABLET (FP) PO PRN (04:48)
[2018-10-12] MEDS: IBUPROFEN 600 MG TABLET (FP) PO PRN (04:50)
[2018-10-12 11:43] VITALS: BP 133/73; PULSE 73; TEMP 98.1
--- NOTE | 2018-10-17 15:34 | PATH ---
Surgical Pathology Report Patient Name: SARAH SCHMITT Med. Rec. 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 Electronically Signed Kranthi Carver M.D. Gross Description The specimen is received fresh labeled placenta and is a 379 gram, 19.0 x 16.5 x 1.6 cm. placenta with attached membranes and umbilical cord. The attached membranes are mishra, translucent with focal opacities and insert marginally. The umbilical cord measures 34 cm. in length and averages 1.3 cm. in diameter. The cord inserts eccentrically, 4.5 cm. to the nearest margin. No true knots or strictures are identified. Cut surface of the umbilical cord reveals 3 vessels. The surface is banda-blue with minimal fibrin deposition and appropriate caliber vessels. The maternal surface is red-brown with focal defects. Sectioning reveals red-brown, spongy parenchyma. No lesions are identified. Wel[employer]ne[employer] sections are submitted in three cassettes as follows: 1- membrane rolls and umbilical cord; 2-3- full thickness sections of placenta. /10/16/2018 saudi10/16/2018
--- NOTE | 2018-12-13 13:00 | DS ---
Physical Exam-NURSE EDUCATOR Vital Signs: Vital Signs Temperature 98.1 F 10/12/18 10:00 Pulse Rate 73 10/12/18 10:00 Respiratory Rate 18 10/12/18 10:00 Blood Pressure 133/73 10/12/18 10:00 O2 Sat by Pulse Oximetry (%) 100 10/10/18 07:25 Labs: CBC, BMP 10/11/18 06:08 10/10/18 02:15 Delivery - Delivery Type of Anesthesia: Spinal Episiotomy/Laceration: None EBL (cc): 600 Delivery, Single - Stages of Labor Date 1st Stage Initiatied: 10/09/18 Time 1st Stage Initiated: 21:30 Date of Delivery: 10/10/18 Time of Delivery: 05:06 Time Placenta Delivered: 05:07 Placenta: Yes: Manual Removal - Condition of Paradichlorobenzene Machine Operator/Ssn/Ssbn Assistant Navigator Present: Yes Name: Malorie Chavez Infant Gender: Male Weight: 6 lb 9 oz Position: OP Total Hours ROM (Hrs/Mins): 2hrs 37min - 1 Minute Total Score: 9 5 Minutes Total Score: 9 - Feeding Plan Initial Plan: Elected not to breastfeed exclusively throughout hospitalization Discharge Summary Reason For Visit: PREVIOUS C/S IN LABOR Procedures: Principal: delivery Hospital Course: Patient admitted in labor Underwent repeat delivery POD # 1 ambulating and voiding without assistance, good pain control Strongly desired DC home POD #2 Condition: Good - Instructions Diet, Activity, Other Instructions: Physical activity Resume your normal everyday activity as tolerated no heavy lifting or exercise until seen by your surgeon. You may walk unlimited noel of and climb stairs. You may resume driving the car when you feel safe and comfortable behind the wheel. No sexual activity as instructed. Wound care If you have a bandage, leave it on, and keep dry for 48-72 hours. After that time discard the outer bandage. If they are tapes on the skin under the out of bandage leave them in place. They will peel off in the next 7 to 10 days. Do Not Peel them off. You may shower the day after surgery. If there are tapes present on the skin, you may shower over them. Diet There are no dietary restrictions. Eat healthy, high-fiber foods. Drink 6 to 8 glasses of liquid each day. This will assist in keeping your bowels are regular. Pain management You may take Tylenol or acetaminophen or Ibuprofen (for example, Motrin, Advil etc.) from my pain prescription medication is ordered should be taken as prescribed for moderate to severe pain. Call MD for any of the following: Severe pain not relieved by medication Fever of 101 or higher Excessive bleeding or drainage on dressing Inability to urinate Referrals: Rocio Mercado MD [Primary Care Provider] - Az Santillan MD [Staff Physician] - Disposition: HOME - Home Medications Comprehensive Discharge Medication List: Ambulatory Orders Vitamins (Sjr) - 1 tab PO DAILY 05/05/15
== END 2018-10-12 11:45 | disposition home or self-care (01) | DRG 540 ==
LOC: JDEL 23:05 → JLDR 10-10 02:30 → J3W 10-10 08:17
PROVIDERS: ADMIT Obstetrics & Gynecology; ATTEND Obstetrics & Gynecology
PROC: 10D00Z1 Extraction of Products of Conception, Low, Open Approach (ICD-10-PCS; principal; 2018-10-10)
DX: O75.89 Other specified complications of labor and delivery (principal); Z3A.37 37 weeks gestation of pregnancy; Z37.0 Single live birth; D57.3 Sickle-cell trait
CPT/HCPCS: 36415; 76801-TC; 80048; 85025; 85610; 85730; 86593; 86850; 86900; 86901; 87389; 88307-TC

== ENCOUNTER 2023-05-08 05:28 | Emergency (ER) | payer OTHER ==
[2023-05-08 05:41] VITALS: BP 138/86; PULSE 92; RESP 20; TEMP 97.5; BMI 22.7
[2023-05-08] MEDS ORDERED: AMOXICILLIN 250 MG CAPSULE PO ONE (06:07)
[2023-05-08] MEDS ORDERED: AMOXICILLIN 250 MG CAPSULE ONE (06:11)
[2023-05-08] MEDS ORDERED: AMOX TR/POT CLAV 875MG/125MG TABLETS (FP) PO ONE ×2 (06:15)
[2023-05-08] MEDS ORDERED: AMOX TR/POT CLAV 875MG/125MG TABLETS (FP) ONE (06:19)
== END 2023-05-08 06:21 | disposition home or self-care (01) ==
LOC: JER 05:28
DX: R21 Rash and other nonspecific skin eruption (principal); L29.9 Pruritus, unspecified; N61.0 Mastitis without abscess
CPT/HCPCS: 99283-25